=== PATIENT | female | born 1970 | race Caucasian/White ===

== ENCOUNTER 2018-09-09 22:02 | Observation (INO) | payer OTHER ==
[~2018-09-09] VITALS: Ht 160 cm; Wt 64.1 kg
[2018-09-09 22:09] VITALS: BP 121/74
[2018-09-09 23:00] LABS: BASOPHILS % (AUTO) 0.6 % (0.0-2.0); EOSINOPHILS # (AUTO) 0.1 K/uL (0-0.4); LYMPHOCYTES # (AUTO) 1.7 K/uL (2.5-16.5); LYMPHOCYTES % (AUTO) 28.7 % (20.5-51.1); MEAN CORPUSCULAR HEMOGLOBIN 12 pg (27-31); MEAN CORPUSCULAR HGB CONC 25 g/dL (33-37); MEAN CORPUSCULAR VOLUME 49.4 fL (80-94); MONOCYTES # (AUTO) 0.5 K/uL (0.8-1.0); MONOCYTES % (AUTO) 7.7 % (1.7-9.3); NEUTROPHILS # (AUTO) 3.7 K/uL (1.8-7.7); PLATELET COUNT (AUTO) 319 K/uL (140-450); RED CELL DISTRIBUTION WIDTH 21.9 % (11.6-13.7)
[2018-09-09 23:09] LABS: ANION GAP 8.5 (8-16); CARBON DIOXIDE 29.9 mmol/L (21-32); CREATININE 0.6 mg/dL (0.6-1.3); POTASSIUM 3.4 mmol/L (3.5-5.1)
--- NOTE | 2018-09-09 23:10 | NUR ---
PT CAME TO ER PER MD REQUEST. PT HAD BLOOD DRAWN X3 DAYS AGO. SHE RECEIVED A CALLED TODAY STATING TO GO TO THE ER FOR LOW PLATELETS. PT AWAKE ALERT. VSS. PT STATES HER LAST MENSTRUAL PERIOD WAS 3 WEEKS AGO, BLEEDING X2 DAYS, THEN THE NEXT WEEK SHE WAS BLEEDING AGAIN X5 DAYS. NO OTHER UNUSUAL BRUISING OR BLEEDING. NO MED HX. SAFETY MEASURES IN PLACE. WAITING FOR ERMD TO EVALUATE PT.
[2018-09-09 23:13] LABS: HEMATOCRIT 18.3 % (36-48); HEMOGLOBIN 4.6 g/dL (12.0-16.0)
[2018-09-09 23:15] LABS: ALBUMIN 3.4 g/dL (3.4-5.0); TOTAL BILIRUBIN 0.3 mg/dL (0.0-1.0)
--- NOTE | 2018-09-09 23:15 | NUR ---
CRTICIAL LAB VALUES 4.6 HGB AND 18.3 HCT. ERMD NOTIFIED.
[2018-09-09 23:19] LABS: PROTHROMBIN TIME 9.4 secs (10.8-13.4)
--- NOTE | 2018-09-10 | NUR ---
PT AMBULATED TO RESTROOM
--- NOTE | 2018-09-10 00:30 | NUR ---
PT RESTING IN BED WITH EYES OPEN. VSS. WILL CONTINUE TO MONITOR.
--- NOTE | 2018-09-10 00:50 | NUR ---
ERMD AT BEDSIDE
[2018-09-10] MEDS ORDERED: ACETAMINOPHEN 325 MG TAB PO PRN (01:05)
[2018-09-10] MEDS ORDERED: ONDANSETRON 4 MG/2 ML VIAL IVP PRN (01:05)
--- NOTE | 2018-09-10 02:00 | NUR ---
Patient will be admitted to care of Dr. Francois. Admited to Tele. Will go to room 106A. Belongings list completed. Report to ROCKY Hernandez.
--- NOTE | 2018-09-10 02:02 | NUR ---
Transfer of care and report given to ROCKY Hernandez.
[2018-09-10 02:05] VITALS: BP 106/59
--- NOTE | 2018-09-10 02:05 | NUR ---
ADMITTED A 51F FROM ER. CAME BY KRIS . TELE METRY PT. C/O OF EASILY FEELING TIRED DUE TO HEAVY VAGINAL BLEEDING FOR ALMOST 5 DAYS . AWAKE,ALERT AND ORIENTED X4. AMBULATORY . HL ON THE LT AC G#20, CLEAR AND PATENT. WITH NO C/O ANY DISCOMFORT NOR PAIN AT THIS TIME. NO OTHER MEDICAL PROBLEM EXCEPT HAD GASTRIC BYPASS 2013. ORIENTED TO HOSPITAL ROUTINES. BED IN LOW POSITION. FREQ CHECK NEEDED. SIDE RAILS UP X2. CALL LIGHT WITHIN EASY REACH. WILL CONTINUE TO MONITOR.
--- NOTE | 2018-09-10 03:15 | NUR ---
PAGED DR. DELGADO @[id number] FOR CLARIFICATION OF ORDER FOR BLOOD TRANSFUSION. DR. RAMOS GROSSMAN REGULATORY ASSOCIATE. CALLED BACK. ORDERED TO TRANSFUSE 3 UNITS PRBC NOW.
[2018-09-10 04:10] VITALS: BP 99/46
--- NOTE | 2018-09-10 04:10 | NUR ---
IST UNIT PRBC READY PER BLOOD BANK. VITAL SIGNS TAKEN AND RECORDED.
--- NOTE | 2018-09-10 04:25 | NUR ---
IST UNIT PRBC STARTED AFTER VERIFIED WITH PT BY ANOTHER OXIDATION OPERATOR NURSE , ZORAN. PT MADE AWARE OF THE POSSIBLE REACTION . VERBALIZED UNDERSTANDING. WILL CONTINUE TO MONITOR.
--- NOTE | 2018-09-10 05:25 | NUR ---
TRANSFUSION STILL ONGOING. NO REACTION NOTED . WILL CONTINUE TO MONITOR.
--- NOTE | 2018-09-10 07:15 | NUR ---
RECEIVED REPORT FROM CLOSET BUILDER NURSE. PT IN STABLE CONDITION
--- NOTE | 2018-09-10 07:15 | NUR ---
ENDORSED PT IN STABLE CONDITION TO AM NURSE.
[2018-09-10 07:30] VITALS: BP 103/55
--- NOTE | 2018-09-10 07:30 | NUR ---
1ST UNIT PRBC TRANSFUSION DONE @0715 NO REACTION NOTED. VITAL SIGN TAKEN,STABLE . ENDORSED AGAIN TO AM NURSE.
--- NOTE | 2018-09-10 08:33 | NUR ---
PATIENT HAS BEEN SCREENED AND CATEGORIZED MODERATE NUTRITION RISK. PATIENT WILL BE SEEN WITHIN 3-5 DAYS OF ADMISSION. 09/12/18 09/14/[address]
--- NOTE | 2018-09-10 08:47 | NUR ---
STARTED INFUSION OF ONE UNIT OF BLOOD FOR PATIENT. WILL MONITOR VITAL SIGNS PER PROTOCOL. PT IS STABLE UPON INITIAL START OF TRANSFUSION. WILL CONTINUE TO MONITOR
[2018-09-10] MEDS ORDERED: FERR325E14 PO (10:57)
[2018-09-10 11:50] VITALS: BP 99/57
--- NOTE | 2018-09-10 13:30 | NUR ---
BEGAN INFUSION OF ONE UNIT OF BLOOD. STAYED WITH THE PATIENT DURING THE FIRST 15 MIN. PT WASN'T HAVING ANY ADVERSE REACTIONS, MONITORED VITAL SIGNS AFTER 15 MIN. WILL CONTINUE TO MONITOR PER PROTOCOL.
--- NOTE | 2018-09-10 14:20 | NUR ---
Blood transfusion completed at this time. Pt resting in bed, no signs of adverse reactions. Respirations even & nonlabored, no c/o pain/discomfort. Left AC IV flushed with 10ml NS, site patent & asymptomatic. Call light within reach. Addendum: 09/10/18 at 1727 by Blanca Padilla RN Wrong time input. Correct time of event is 1620.
--- NOTE | 2018-09-10 14:30 | NUR ---
Notified lab of blood infusion end time. Per lab, will draw blood after 1 hr of infusion end time. Pt currently resting in bed, eating snacks. No c/o discomfort/dizziness/weakness. Respirations even & nonlabored in room air. Call light within reach. Addendum: 09/10/18 at 1726 by Blanca Padilla RN Wrong time input. Correct time of event is 1630.
[2018-09-10 16:00] VITALS: BP 98/56
--- NOTE | 2018-09-10 16:20 | NUR ---
Blood transfusion completed at this time. Pt resting in bed, no signs of adverse reactions. Respirations even & nonlabored, no c/o pain/discomfort. Left AC IV flushed with 10ml NS, site patent & asymptomatic. Call light within reach.
--- NOTE | 2018-09-10 16:30 | NUR ---
Notified lab of blood infusion end time. Per lab, will draw blood after 1 hr of infusion end time. Pt currently resting in bed, eating snacks. No c/o discomfort/dizziness/weakness. Respirations even & nonlabored in room air. Call light within reach.
[2018-09-10 18:42] LABS: BASOPHILS % (AUTO) 0.9 % (0.0-2.0); EOSINOPHILS # (AUTO) 0.1 K/uL (0-0.4); EOSINOPHILS % (AUTO) 2.1 % (0.0-4.0); HEMATOCRIT 28.1 % (36-48); HEMOGLOBIN 7.9 g/dL (12.0-16.0); LYMPHOCYTES # (AUTO) 1.6 K/uL (2.5-16.5); LYMPHOCYTES % (AUTO) 33.8 % (20.5-51.1); MEAN CORPUSCULAR HEMOGLOBIN 17 pg (27-31); MEAN CORPUSCULAR HGB CONC 28 g/dL (33-37); MEAN CORPUSCULAR VOLUME 60.4 fL (80-94); MONOCYTES # (AUTO) 0.4 K/uL (0.8-1.0); NEUTROPHILS # (AUTO) 2.6 K/uL (1.8-7.7); NEUTROPHILS % (AUTO) 54.2 % (42.2-75.2); PLATELET COUNT (AUTO) 255 K/uL (140-450); RED BLOOD CELL COUNT(AUTO) 4.66 MIL/uL (4.20-5.40); RED CELL DISTRIBUTION WIDTH 37.3 % (11.6-13.7); WHITE BLOOD COUNT (AUTO) 4.9 K/uL (4.8-10.8)
[2018-09-10 18:55] LABS: ANION GAP 11.3 (8-16); CARBON DIOXIDE 28.2 mmol/L (21-32); CREATININE 0.7 mg/dL (0.6-1.3); POTASSIUM 4.5 mmol/L (3.5-5.1)
[2018-09-10 19:00] LABS: ALBUMIN 3.1 g/dL (3.4-5.0); TOTAL BILIRUBIN 0.7 mg/dL (0.0-1.0)
--- NOTE | 2018-09-10 19:15 | NUR ---
ENDORSED PATIENT TO TRAPEZE ARTIST NURSE. NO SIGNS OF RESPIRATORY DISTRESS.
--- NOTE | 2018-09-10 19:30 | NUR ---
RECEIVED BEDSIDE REPORT FROM DAY SHIFT NURSE. PATIENT IS AWAKE, ALERT, AND COOPERATIVE. RESPIRATION EVEN UNLABORED ON ROOM AIR. NO DISTRESS NOTED. SKIN IS WARM AND DRY. IV PATENT AND INTACT. PATIENT IS BEING DISCHARGED TODAY. AWAITING FOR ALL PAPER. ALL SAFETY MEASURES IN PLACE. CALL LIGHT WITHIN REACH. WILL CONTINUE TO MONITOR.
--- NOTE | 2018-09-10 19:55 | NUR ---
PATIENT LEFT THE FACILITY AT 7:55 ALONE USING PERSONAL VEHICLE HEADING HOME. ALL DOCUMENTS ARE SIGNED AND PATIENT EDUCATION GIVEN. VERBALIZES UNDERSTANDING. PATIENT LEFT IN STABLE CONDITION.
== END 2018-09-10 20:59 | disposition still patient (30) ==
LOC: MED 22:02 → MTU 09-10 01:13 → INTOOBSV 09-10 01:13
PROVIDERS: ADMIT Internal Medicine Pulmonary Disease; ATTEND Internal Medicine Pulmonary Disease
DX: D62 Acute posthemorrhagic anemia (principal); N92.0 Excessive and frequent menstruation with regular cycle
CPT/HCPCS: 36415; 36430; 71045; 80053; 83540; 85025; 85610; 85730; 86886; 86900; 86901; 86920; 87081; 99285; G0378; J7030; P9016

== ENCOUNTER 2019-03-08 23:08 | Emergency (ER) | payer OTHER ==
[~2019-03-08] VITALS: Ht 160 cm; Wt 69.4 kg
[~2019-03-08 23:08] MED LIST: FERR325E14 PO
[2019-03-08 23:13] VITALS: BP 125/76
--- NOTE | 2019-03-08 23:23 | NUR ---
AMBULATES TO WITH UPRIGHT STEADY GAIT TO COLLECT URINE. WILL SEND TO BED 09 WHEN FINISHED.
--- NOTE | 2019-03-08 23:46 | NUR ---
48 Y/O FEMALE PRESENTS TO ED, C/O PAIN URINATING. PT STATES BURNING SENSATION /10. LOWER ABDOMINAL PAIN, DOES NOT RADIATE. BS ACTIVE X4 QUADRANTS. ABDOMEN SOFT AND NONTENDER. PT DENIES ANY N/V/D. NO MEDICATIONS TAKEN PRIOR COMING TO ED. NO FEVER NOTED. PT VSS. ERMD AWARE. WILL CONTINUE TO MONITOR.
[2019-03-09 00:32] VITALS: BP 125/76
--- NOTE | 2019-03-09 00:32 | NUR ---
PT DISCHARGED WITH PAPERWORK. EDUCATED PT REGARDING MEDICATION AND D/C INSTRUCTIONS. PT VERBALIZED UNDERSTANDING OF TEACHING. TOLD PT TO FOLLOW UP WITH PCP AND WHEN TO RETURN TO ED. PT AT STABLE CONDITION. ALL QUESTIONS ANSWERED.
[2019-03-09 00:36] LABS: APPEARANCE,URINE CLOUDY (CLEAR); BILIRUBIN,URINE NEGATIVE (NEGATIVE); BLOOD, URINE 3+ (NEGATIVE); COLOR,URINE YELLOW (YELLOW); LEUKOCYTE ESTERASE ,URINE 1+ (NEGATIVE); NITRITE, URINE NEGATIVE (NEGATIVE); UGLUCOSE NEGATIVE (NEGATIVE)
[2019-03-09 00:52] LABS: RBC,URINE 11-20 (MOD) /HPF (0-5); WBC,URINE TOO MANY TO COUNT /HPF (0-5)
== END 2019-03-09 00:32 | disposition home or self-care (01) ==
LOC: MED 23:08
DX: N30.90 Cystitis, unspecified without hematuria (principal); Z79.899 Other long term (current) drug therapy
CPT/HCPCS: 81001; 81025; 99283